=== PATIENT | male | born 1940 | race Caucasian/White ===

== ENCOUNTER 2016-10-14 11:45 | Outpatient (CLI) | payer MEDICARE, OTHER ==
[2016-10-14 13:04] LABS: Anion Gap 12 mmol/L (10-20); BUN (Urea Nitrogen) 19 mg/dL (8.4-25.7); Calc. Creatinine Clearance 0 mL/min (70-130); Calcium 9.1 mg/dL (7.8-10.44); Carbon Dioxide 26 mmol/L (23-31); Chloride 107 mmol/L (98-107); Estimated GFR-MDRD Greater than 90; Glucose 100 mg/dL (83-110); Magnesium 1.9 mg/dL (1.6-2.6); Potassium 3.9 mmol/L (3.5-5.1); Sodium 141 mmol/L (136-145)
[2016-10-14 13:25] LABS: Band 21 % (5-11); Hemoglobin 11.7 g/dL (14.0-18.0); Lymphocytes 4 % (21-51); MDiff Complete? YES; Mean Corpuscular HGB CONC 32.8 g/dL (32.0-36.0); Mean Corpuscular Hemoglobin 33.8 pg (27.0-31.0); Mean Corpuscular Volume 102.9 fl (80.0-94.0); Mean Platelet Volume 7.1 fL (7.4-10.4); Monocytes 1 % (0-10); Neutrophil 74 % (42-75); PLT Morphology Comment Appears Adequate; Platelet Count 240 thou/uL (130-400); RBC Distribution Width 16.4 % (11.5-14.5); Red Blood Cell (RBC) Count 3.45 mill/uL (4.70-6.10)
[2016-10-14 13:30] LABS: White Blood Cell (WBC) Count 44.6 thou/uL (4.8-10.8)
== END 2016-10-14 11:46 | disposition home or self-care (01) ==
LOC: MADLABBHPM 11:45
PROVIDERS: ATTEND Family Medicine
DX: C49.21 Malignant neoplasm of connective and soft tissue of right lower limb, including hip (principal)
CPT/HCPCS: 36415; 80048; 83735; 85025; 85060

== ENCOUNTER 2016-10-16 08:42 | Outpatient (CLI) | payer MEDICARE, OTHER ==
[2016-10-16 09:26] LABS: Anion Gap 14 mmol/L (10-20); BUN (Urea Nitrogen) 15 mg/dL (8.4-25.7); Calc. Creatinine Clearance 0 mL/min (70-130); Carbon Dioxide 26 mmol/L (23-31); Chloride 106 mmol/L (98-107); Estimated GFR-MDRD Greater than 90; Glucose 122 mg/dL (83-110); Potassium 3.9 mmol/L (3.5-5.1); Sodium 142 mmol/L (136-145)
[2016-10-16 10:13] LABS: White Blood Cell (WBC) Count 43.1 thou/uL (4.8-10.8)
[2016-10-16 10:14] LABS: Anisocytosis SLIGHT = 6-15 cells (100X) (0-5/hpf); Band 20 % (5-11); Hemoglobin 11.4 g/dL (14.0-18.0); Lymphocytes 1 % (21-51); MDiff Complete? YES; Manual Diff?? YES; Mean Corpuscular HGB CONC 33.3 g/dL (32.0-36.0); Mean Corpuscular Hemoglobin 34.1 pg (27.0-31.0); Mean Platelet Volume 7.2 fL (7.4-10.4); Neutrophil 79 % (42-75); Platelet Count 156 thou/uL (130-400); Poikilocytosis SLIGHT = 6-15 cells (100X) (0-5/hpf); RBC Distribution Width 16.2 % (11.5-14.5); Red Blood Cell (RBC) Count 3.34 mill/uL (4.70-6.10)
[2016-10-16 10:15] LABS: PLT Morphology Comment Appears Adequate; Toxic Granulation MODERATE
== END 2016-10-16 08:43 | disposition home or self-care (01) ==
LOC: MADLABBHPM 08:42
PROVIDERS: ATTEND Family Medicine
DX: C49.21 Malignant neoplasm of connective and soft tissue of right lower limb, including hip (principal)
CPT/HCPCS: 36415; 80048; 83735; 85025

== ENCOUNTER 2016-10-21 08:08 | Outpatient (CLI) | payer MEDICARE, OTHER ==
[2016-10-21 08:54] LABS: Anion Gap 14 mmol/L (10-20); BUN (Urea Nitrogen) 16 mg/dL (8.4-25.7); Calc. Creatinine Clearance 0 mL/min (70-130); Calcium 9.1 mg/dL (7.8-10.44); Carbon Dioxide 27 mmol/L (23-31); Chloride 107 mmol/L (98-107); Estimated GFR-MDRD Greater than 90; Glucose 124 mg/dL (83-110); Magnesium 2.2 mg/dL (1.6-2.6); Potassium 4.5 mmol/L (3.5-5.1); Sodium 143 mmol/L (136-145)
[2016-10-21 09:32] LABS: Band 7 % (5-11); Eosinophils 2 % (0-10); Hemoglobin 11.3 g/dL (14.0-18.0); Lymphocytes 33 % (21-51); MDiff Complete? YES; Mean Corpuscular HGB CONC 33.9 g/dL (32.0-36.0); Mean Corpuscular Hemoglobin 34.2 pg (27.0-31.0); Mean Platelet Volume 8.9 fL (7.4-10.4); Monocytes 2 % (0-10); Neutrophil 56 % (42-75); PLT Morphology Comment Appears Decreased; Platelet Count 97 thou/uL (130-400); RBC Distribution Width 14.9 % (11.5-14.5); White Blood Cell (WBC) Count 3.4 thou/uL (4.8-10.8)
== END 2016-10-21 08:09 | disposition home or self-care (01) ==
LOC: MADLABBHPM 08:08
PROVIDERS: ATTEND Family Medicine
DX: C49.21 Malignant neoplasm of connective and soft tissue of right lower limb, including hip (principal)
CPT/HCPCS: 36415; 80048; 83735; 85025

== ENCOUNTER 2016-10-26 10:08 | Outpatient (CLI) | payer MEDICARE, OTHER ==
[2016-10-26 10:56] LABS: Anion Gap 14 mmol/L (10-20); BUN (Urea Nitrogen) 14 mg/dL (8.4-25.7); Calc. Creatinine Clearance 0 mL/min (70-130); Carbon Dioxide 27 mmol/L (23-31); Chloride 106 mmol/L (98-107); Estimated GFR-MDRD 83; Glucose 129 mg/dL (83-110); Potassium 4.4 mmol/L (3.5-5.1); Sodium 143 mmol/L (136-145)
[2016-10-26 12:58] LABS: #Basophils 0.1 thou/uL (0.0-0.2); #Eosinphils 0.1 thou/uL (0.0-0.7); #Lymphocytes 0.5 thou/uL (1.20-3.40); #Monocytes 0.3 thou/uL (0.11-0.59); #Neutrophils 3.3 thou/uL (1.40-6.50); %Basophils 2.8 % (0.0-1.0); %Eosinophils 1.8 % (0.0-10.0); %Lymphocytes 11.1 % (21.0-51.0); %Monocytes 7.3 % (0.0-10.0); Anisocytosis SLIGHT = 6-15 cells (100X) (0-5/hpf); Hemoglobin 11.7 g/dL (14.0-18.0); Hypochromia SLIGHT = 6-15 cells (100X) (0-5/hpf); MDiff Complete? YES; Mean Corpuscular HGB CONC 32.8 g/dL (32.0-36.0); Mean Corpuscular Hemoglobin 33.9 pg (27.0-31.0); Mean Corpuscular Volume 103.3 fl (80.0-94.0); PLT Morphology Comment Appears Decreased; Platelet Count 94 thou/uL (130-400); RBC Distribution Width 15.6 % (11.5-14.5); Red Blood Cell (RBC) Count 3.44 mill/uL (4.70-6.10); White Blood Cell (WBC) Count 4.3 thou/uL (4.8-10.8)
== END 2016-10-26 10:09 | disposition home or self-care (01) ==
LOC: MADLABBHPM 10:08
PROVIDERS: ATTEND Family Medicine
DX: C49.21 Malignant neoplasm of connective and soft tissue of right lower limb, including hip (principal)
CPT/HCPCS: 36415; 80048; 83735; 85025